=== PATIENT | male | born 1980 | race Caucasian/White ===

== ENCOUNTER → 2017-11-03 | Outpatient (CLI) | payer BC ==
[2017-11-03 12:19] LABS: BASO % 0.6 %; BASO ABS # 0.04 K/uL (0-0.2); EOS % 10.8 %; EOS ABS # 0.76 K/uL (0-0.5); HEMATOCRIT 43.1 % (42-52); HEMOGLOBIN 15.4 g/dL (14.0-18.0); IG# 0.02 K/uL (0.00-0.02); LYMPH % 43.3 %; LYMPH ABS # 3.05 K/uL (1.2-3.4); MEAN CELL VOLUME 94.5 fL (80-100); MEAN CORPUSCULAR HEMOGLOBIN 33.8 pg (25-34); MEAN CORPUSCULAR HGB CONC 35.7 g/dl (32-36); MEAN PLATELET VOLUME 10.1 fL (7.4-10.4); MONO % 9.2 %; MONO ABS # 0.65 K/uL (0.11-0.59); NEUT % 35.8 %; NEUT ABS # 2.53 K/uL (1.4-6.5); PLATELET COUNT 277 K/uL (130-400); RED CELL DISTRIBUTION WIDTH CV 12.6 % (11.5-14.5); RED CELL DISTRIBUTION WIDTH SD 43.2 fL (36.4-46.3); WHITE BLOOD COUNT 7.05 K/uL (4.8-10.8)
--- NOTE | 2017-11-03 12:27 | DIAGNOSTIC IMAGING REPORT ---
PA CHEST WITH RIGHT-SIDED RIB SERIES CLINICAL HISTORY: Right-sided chest wall pain. Cough. FINDINGS: A PA chest radiograph with 4 additional views from a right-sided rib series is compared to study dated 08/06/2011. The cardiomediastinal silhouette is unremarkable. The lungs and pleural spaces are clear. No pneumothorax is seen. There is no radiographic evidence of acute/distracted right-sided rib fracture on the rib series. The remainder of the bony thorax is grossly intact. IMPRESSION: 1. The lungs are clear. 2. There is no radiographic evidence of right-sided rib fracture on the rib series as clinically queried. Electronically signed by: Jose Galvez M.D. 11/03/2017 12:26 PM Dictated Date/Time: 11/03/2017 12:24 PM
[2017-11-03 12:43] LABS: ALBUMIN 3.9 gm/dl (3.4-5.0); ALT/SGPT 45 U/L (12-78); AST/SGOT 16 U/L (15-37); BLOOD UREA NITROGEN 12 mg/dl (7-18); CALCIUM 9.4 mg/dl (8.5-10.1); CARBON DIOXIDE 27 mmol/L (21-32); CREATININE 1.02 mg/dl (0.60-1.40); GLUCOSE 106 mg/dl (70-99); POTASSIUM 4.1 mmol/L (3.5-5.1); SODIUM 135 mmol/L (136-145)
[2017-11-03 12:46] LABS: ALKALINE PHOSPHATASE 85 U/L (45-117); CHOLESTEROL 200 mg/dl (0-200); LDL CHOLESTEROL CALCULATED 108 mg/dl; TOTAL PROTEIN 7.7 gm/dl (6.4-8.2)
== END | disposition home or self-care (01) ==
LOC: C.RAD1850 10:50
PROVIDERS: ATTEND Physician Assistant
DX: R07.81 Pleurodynia (principal); Z13.220 Encounter for screening for lipoid disorders